=== PATIENT | female | born 1980 | race Caucasian/White ===

== ENCOUNTER 2018-02-06 21:34 | Emergency (ER) | payer MEDICAID, OTHER ==
[~2018-02-06] VITALS: Ht 157.5 cm; Wt 84.0 kg
[~2018-02-06 21:34] MED LIST: IBUP-1574 PO; NAPR-56 PO
[2018-02-06 21:35] VITALS: BP 145/91
[2018-02-06] MEDS ORDERED: iohexol 350MG/ML 100ml bottle IV ONE (22:46)
[2018-02-06 23:17] LABS: URINE HCG NEGATIVE (NEG)
== END 2018-02-07 01:37 | disposition home or self-care (01) ==
LOC: ER 21:34
DX: M54.2 Cervicalgia (principal); F15.90 Other stimulant use, unspecified, uncomplicated; F12.90 Cannabis use, unspecified, uncomplicated; Z88.1 Allergy status to other antibiotic agents; Z88.0 Allergy status to penicillin
CPT/HCPCS: 70496; 70498; 81025; 99285; J7030; Q9967; 99284

== ENCOUNTER 2018-04-15 07:42 | Emergency (ER) | payer MEDICAID ==
[~2018-04-15] VITALS: Ht 157.5 cm; Wt 90.0 kg
[2018-04-15] MEDS ORDERED: AZIT250T83 PO (08:19)
[2018-04-15] MEDS ORDERED: TRAM50TA2 PO (08:19)
[2018-04-15] MEDS ORDERED: ketorolac trometh inj. 60 MG/2 ML VIAL IM ONE (08:20)
[2018-04-15 08:58] VITALS: BP 103/54
== END 2018-04-15 09:03 | disposition home or self-care (01) ==
LOC: ER 07:42
DX: J02.9 Acute pharyngitis, unspecified (principal); R59.0 Localized enlarged lymph nodes; F12.90 Cannabis use, unspecified, uncomplicated; F15.90 Other stimulant use, unspecified, uncomplicated; Z88.1 Allergy status to other antibiotic agents; Z88.0 Allergy status to penicillin; Z98.890 Other specified postprocedural states; Z59.0 Homelessness
CPT/HCPCS: 96372; 99283; J1885

== ENCOUNTER 2018-07-29 14:58 | Emergency (ER) | payer MEDICAID ==
[~2018-07-29] VITALS: Ht 157.5 cm; Wt 87.0 kg
[2018-07-29 14:59] VITALS: BP 133/84
[2018-07-29] MEDS ORDERED: LEVO500T2 PO (15:05)
[2018-07-29] MEDS ORDERED: IBUP-1984 PO (15:05)
== END 2018-07-29 15:19 | disposition home or self-care (01) ==
LOC: ER 14:58
DX: H66.92 Otitis media, unspecified, left ear (principal); Z86.14 Personal history of Methicillin resistant Staphylococcus aureus infection; F12.90 Cannabis use, unspecified, uncomplicated; F15.90 Other stimulant use, unspecified, uncomplicated; Z88.1 Allergy status to other antibiotic agents; Z88.0 Allergy status to penicillin; Z79.899 Other long term (current) drug therapy; Z98.890 Other specified postprocedural states; Z56.0 Unemployment, unspecified
CPT/HCPCS: 99283

== ENCOUNTER 2018-11-10 02:02 | Emergency (ER) | payer MEDICAID ==
[~2018-11-10] VITALS: Ht 154.9 cm; Wt 72.0 kg
[2018-11-10 02:05] VITALS: BP 115/90
[2018-11-10] MEDS ORDERED: CLIN150C8 PO (02:25)
[2018-11-10] MEDS ORDERED: ibuprofen tablet 400 MG TABLET PO ONE (02:25)
[2018-11-10] MEDS ORDERED: clindamycin 150mg capsule PO ONE (02:25)
[2018-11-10] MEDS ORDERED: ketorolac trometh inj. 60 MG/2 ML VIAL IM ONE (02:40)
== END 2018-11-10 02:56 | disposition home or self-care (01) ==
LOC: ER 02:02
DX: L02.511 Cutaneous abscess of right hand (principal); F12.90 Cannabis use, unspecified, uncomplicated; F15.90 Other stimulant use, unspecified, uncomplicated; Z79.899 Other long term (current) drug therapy; Z79.2 Long term (current) use of antibiotics; Z79.1 Long term (current) use of non-steroidal anti-inflammatories (NSAID); Z56.0 Unemployment, unspecified; Z59.0 Homelessness; Z86.14 Personal history of Methicillin resistant Staphylococcus aureus infection; Z88.0 Allergy status to penicillin; Z88.1 Allergy status to other antibiotic agents; Z98.890 Other specified postprocedural states
CPT/HCPCS: 96372; 99284; J1885

== ENCOUNTER 2018-11-13 01:23 | Emergency (ER) | payer MEDICAID ==
[~2018-11-13] VITALS: Ht 154.9 cm; Wt 72.0 kg
[~2018-11-13 01:23] MED LIST changes: +CLIN150C8 PO
[2018-11-13 01:27] VITALS: BP 113/78
--- NOTE | 2018-11-13 01:50 | NUR ---
Patient requests to get a steroid injection, "quick, so I can get outta' here." I informed the patient we would get her taken care of as quickly as possible but that there were currently several emergencies to attend to first. She states, "thats ok, I'll just come back in the morning. Just don't scratch it, right?" I attempted to convince the patient to stay but she refused to wait. Patient left ambulatory in a stable condition. It is unknown if she is homeless as she states, "Why? I don't feel like talking about it."
== END 2018-11-13 02:08 | disposition left against medical advice (07) ==
LOC: ER 01:23
DX: L23.7 Allergic contact dermatitis due to plants, except food (principal); Z53.21 Procedure and treatment not carried out due to patient leaving prior to being seen by health care provider

== ENCOUNTER 2019-01-27 19:51 | Emergency (ER) | payer MEDICAID ==
[~2019-01-27] VITALS: Ht 157.5 cm; Wt 72.7 kg
[2019-01-27 19:53] VITALS: BP 106/62
[2019-01-27 20:21] LABS: URINE HCG NEGATIVE (NEG)
[2019-01-27 20:22] LABS: CLARITY,URINE CLOUDY (Clear); COLOR,URINE YELLOW (Yellow); GLUCOSE, URINE NEGATIVE (Neg); KETONES,URINE NEGATIVE (Neg); LEUKOCYTE ESTERASE ,URINE MODERATE (Neg); NITRITES, URINE NEGATIVE (Neg); OCCULT BLOOD,URINE MODERATE (Neg); PROTEIN,URINE 30 mg/dl (Neg); UA COLLECTION TYPE VOIDED; UROBILINOGEN,URINE 0.2 E.U/dL (0.2-1.0)
--- NOTE | 2019-01-27 20:23 | NUR ---
PT DENIES ANY ABD PAIN, N/V, HEMATURIA OR FEVERS. CHANGED PT TO LEVEL 4.
[2019-01-27 20:29] LABS: BACTERIA,URINE FEW /HPF (Neg); MUCUS STRANDS NONE SEEN /LPF (Neg); SQUAMOUS EPITHELIAL CELL,UR FEW /LPF (FEW); WBC,URINE TNTC /HPF (0-4)
[2019-01-27 20:30] LABS: TRANSITIONAL EPI CELLS,URINE FEW /HPF
[2019-01-27] MEDS ORDERED: SULF1TAB49 PO (20:33)
== END 2019-01-27 20:40 | disposition home or self-care (01) ==
LOC: ER 19:51
DX: N39.0 Urinary tract infection, site not specified (principal); F12.90 Cannabis use, unspecified, uncomplicated; F15.90 Other stimulant use, unspecified, uncomplicated; Z98.890 Other specified postprocedural states; Z59.0 Homelessness; Z56.0 Unemployment, unspecified; Z88.1 Allergy status to other antibiotic agents; Z88.0 Allergy status to penicillin; Z88.5 Allergy status to narcotic agent; Z79.2 Long term (current) use of antibiotics; Z79.899 Other long term (current) drug therapy
CPT/HCPCS: 81001; 81025; 87077; 87088; 87186; 99283

== ENCOUNTER 2019-03-28 16:50 | Emergency (ER) | payer MEDICAID ==
[~2019-03-28] VITALS: Ht 157.5 cm; Wt 75.0 kg
[2019-03-28 17:33] VITALS: BP 129/85
[2019-03-28 18:04] LABS: CLARITY,URINE CLOUDY (Clear); COLOR,URINE YELLOW (Yellow); GLUCOSE, URINE NEGATIVE (Neg); KETONES,URINE NEGATIVE (Neg); LEUKOCYTE ESTERASE ,URINE LARGE (Neg); NITRITES, URINE POSITIVE (Neg); OCCULT BLOOD,URINE SMALL (Neg); PROTEIN,URINE NEGATIVE (Neg); UROBILINOGEN,URINE 0.2 E.U/dL (0.2-1.0)
[2019-03-28 18:07] LABS: UA COLLECTION TYPE CLN CATCH MIDSTREAM
[2019-03-28 18:21] LABS: BACTERIA,URINE 3+ /HPF (Neg); SQUAMOUS EPITHELIAL CELL,UR MANY /LPF (FEW); WBC,URINE TNTC /HPF (0-4)
[2019-03-28 18:22] LABS: MUCUS STRANDS FEW /LPF (Neg); WBC CLUMPS,URINE FEW /HPF (NEGATIVE)
[2019-03-29] MEDS ORDERED: ONDA4TAB12 PO (02:45)
[2019-03-29] MEDS ORDERED: AMOX-101 PO (02:45)
== END 2019-03-28 20:15 | disposition left against medical advice (07) ==
LOC: ER 16:52
DX: J02.9 Acute pharyngitis, unspecified (principal); Z53.21 Procedure and treatment not carried out due to patient leaving prior to being seen by health care provider
CPT/HCPCS: 81001

== ENCOUNTER 2019-03-29 02:23 | Emergency (ER) | payer MEDICAID ==
[~2019-03-29] VITALS: Ht 157.5 cm; Wt 72.7 kg
[2019-03-29 02:27] VITALS: BP 121/92
[2019-03-29] MEDS ORDERED: ketorolac trometh. 30mg/ml inj. IM ONE (02:40)
[2019-03-29] MEDS ORDERED: amoxicillin 250mg capsule PO ONE (02:40)
[2019-03-29] MEDS ORDERED: dexamethasone sod phosphate 10mg/ml inj PO STA (02:40)
[2019-03-29] MEDS ORDERED: AMOX-101 PO (02:45)
[2019-03-29] MEDS ORDERED: ONDA4TAB12 PO (02:45)
== END 2019-03-29 03:13 | disposition home or self-care (01) ==
LOC: ER 02:24
DX: N39.0 Urinary tract infection, site not specified (principal); J02.9 Acute pharyngitis, unspecified; F17.210 Nicotine dependence, cigarettes, uncomplicated; F12.90 Cannabis use, unspecified, uncomplicated; F15.90 Other stimulant use, unspecified, uncomplicated; Z86.14 Personal history of Methicillin resistant Staphylococcus aureus infection; Z98.890 Other specified postprocedural states; Z56.0 Unemployment, unspecified; Z59.0 Homelessness; Z88.1 Allergy status to other antibiotic agents; Z88.0 Allergy status to penicillin; Z79.2 Long term (current) use of antibiotics; Z79.899 Other long term (current) drug therapy
CPT/HCPCS: 96372; 99283; J1100; J1885

== ENCOUNTER 2021-04-02 15:08 | Emergency (ER) | payer MEDICAID ==
[~2021-04-02 15:08] MED LIST changes: +ONDA4TAB12 PO
== END 2021-04-02 17:09 | disposition left against medical advice (07) ==
LOC: ER 15:09
DX: M54.9 Dorsalgia, unspecified (principal); Z53.21 Procedure and treatment not carried out due to patient leaving prior to being seen by health care provider

== ENCOUNTER 2021-04-08 04:02 | Emergency (ER) | payer MEDICAID ==
[~2021-04-08] VITALS: Ht 157.5 cm; Wt 81.8 kg
[2021-04-08 04:45] LABS: BASOPHILS % (AUTO) 0.2 % (0-1); EOSINOPHILS # (AUTO) 0.2 X10'3 (0-0.9); EOSINOPHILS % (AUTO) 2.1 % (0-6); LYMPHOCYTES % (AUTO) 34.6 % (21-51); MEAN CORPUSCULAR HGB CONC 34.3 g/dL (33.0-36.5); MEAN CORPUSCULAR VOLUME 90.4 FL (78-98); MEAN PLATELET VOLUME 7.5 FL (7.4-10.4); MONOCYTES # (AUTO) 0.6 X10'3 (0-0.9); MONOCYTES % (AUTO) 6.7 % (2-12); NEUTROPHILS # (AUTO) 4.9 X10'3 (1.8-7.7); NEUTROPHILS % (AUTO) 56.4 % (42-75); PLATELET COUNT 366 X10'3 (140-440); RED CELL DISTRIBUTION WIDTH 13.2 % (11.5-14.5); WHITE BLOOD COUNT 8.6 X10'3 (4.5-11.0)
[2021-04-08 04:55] LABS: ALANINE AMINOTRANSFERASE 24 U/L (12-78); ALBUMIN 3.3 G/DL (3.4-5.0); ALBUMIN/GLOBULIN RATIO 0.9 (1.1-1.5); ALKALINE PHOSPHATASE 65 IU/L (46-116); ANION GAP 10 (8-16); ASPARTATE AMINO TRANSFERASE 17 U/L (10-37); BILIRUBIN,TOTAL 0.1 MG/DL (0.1-1.0); BLOOD UREA NITROGEN 9 MG/DL (7-18); BUN/CREATININE RATIO 12.5 (6.6-38.0); CALCIUM 8.8 MG/DL (8.5-10.1); CHLORIDE 101 MMOL/L (99-107); CREATININE 0.72 MG/DL (0.40-0.90); GLUCOSE 100 MG/DL (70-104); LIPASE < 50 U/L (73-393); POTASSIUM 3.5 MMOL/L (3.5-5.1); SODIUM 138 MMOL/L (135-145); TOTAL CARBON DIOXIDE 27.2 MMOL/L (24-32); TOTAL PROTEIN 6.9 G/DL (6.4-8.2); eGFR 90 ML/MIN
[2021-04-08 05:03] LABS: BILIRUBIN,DIRECT < 0.1 MG/DL (0-0.3)
[2021-04-08 05:09] LABS: CLARITY,URINE SLIGHTLY CLOUDY (Clear); COLOR,URINE YELLOW (Yellow); GLUCOSE, URINE NEGATIVE (Neg); KETONES,URINE NEGATIVE (Neg); LEUKOCYTE ESTERASE ,URINE TRACE (Neg); NITRITES, URINE NEGATIVE (Neg); OCCULT BLOOD,URINE NEGATIVE (Neg); PROTEIN,URINE NEGATIVE (Neg); UA COLLECTION TYPE CLN CATCH MIDSTREAM; URINE HCG NEGATIVE (NEG); UROBILINOGEN,URINE 0.2 E.U/dL (0.2-1.0)
[2021-04-08 05:17] LABS: HYALINE CASTS 0-3 /LPF (NEGATIVE)
[2021-04-08 05:19] LABS: BACTERIA,URINE 1+ /HPF (Neg); RBC,URINE 0-2 /HPF (0-2); WBC,URINE 0-4 /HPF (0-4)
[2021-04-08 05:20] LABS: SQUAMOUS EPITHELIAL CELL,UR MANY /LPF (FEW); TRICHOMONAS,URINE FEW /HPF (NEGATIVE)
[2021-04-08] MEDS ORDERED: CEPH-585 PO (06:33)
[2021-04-08 06:45] VITALS: BP 144/99
== END 2021-04-08 06:48 | disposition home or self-care (01) ==
LOC: ER 04:03
DX: N39.0 Urinary tract infection, site not specified (principal); N10 Acute pyelonephritis; R00.0 Tachycardia, unspecified; F12.90 Cannabis use, unspecified, uncomplicated; F15.90 Other stimulant use, unspecified, uncomplicated; Z86.14 Personal history of Methicillin resistant Staphylococcus aureus infection; Z98.890 Other specified postprocedural states; Z56.0 Unemployment, unspecified; Z59.00 Homelessness unspecified; Z79.2 Long term (current) use of antibiotics; Z79.899 Other long term (current) drug therapy
CPT/HCPCS: 36415; 74176; 80048; 80076; 81001; 81025; 83690; 85025; 99284

== ENCOUNTER 2021-08-06 12:00 | Emergency (ER) | payer MEDICAID ==
[~2021-08-06] VITALS: Ht 154.9 cm; Wt 95.0 kg
[2021-08-06 12:06] VITALS: BP 172/89
== END 2021-08-06 16:00 | disposition left against medical advice (07) ==
LOC: ER 12:01
DX: L02.415 Cutaneous abscess of right lower limb (principal); Z53.21 Procedure and treatment not carried out due to patient leaving prior to being seen by health care provider

== ENCOUNTER 2021-09-24 16:06 | Emergency (ER) | payer MEDICAID ==
[~2021-09-24] VITALS: Ht 154.9 cm; Wt 86.0 kg
[2021-09-24 17:01] VITALS: BP 169/106
[2021-09-24] MEDS ORDERED: LIDOcaine 5% patch TP STA (17:37)
[2021-09-24] MEDS ORDERED: triamcinolone acetonide 40mg/ml inj IM ONE (17:40)
[2021-09-24] MEDS ORDERED: TRAM50TA2 PO (17:52)
[2021-09-24] MEDS ORDERED: METH4TAB81 PO (17:52)
--- NOTE | 2021-09-24 18:00 | NUR ---
im given topical applied
[2021-09-25] MEDS ORDERED: IBUP-1986 PO (09:46)
[2021-09-25] MEDS ORDERED: LIDO700A32 TOP (09:46)
== END 2021-09-24 18:24 | disposition home or self-care (01) ==
LOC: ER 16:07
DX: M54.9 Dorsalgia, unspecified (principal); M25.552 Pain in left hip; F12.10 Cannabis abuse, uncomplicated; F15.10 Other stimulant abuse, uncomplicated; Z56.0 Unemployment, unspecified; Z59.00 Homelessness unspecified
CPT/HCPCS: 96372; 99283; J3301

== ENCOUNTER 2021-10-09 12:42 | Emergency (ER) | payer MEDICAID ==
[~2021-10-09] VITALS: Ht 157.5 cm; Wt 90.9 kg
[~2021-10-09 12:42] MED LIST changes: +IBUP-1986 PO; +LIDO700A32 TOP; +METH4TAB81 PO; +TRAM50TA2 PO
[2021-10-09 13:08] VITALS: BP 182/106
--- NOTE | 2021-10-09 13:18 | NUR ---
notified the charge that pt might need the room next as pt is in lot of pain .
[2021-10-09] MEDS ORDERED: ORPH100T2 PO (16:39)
[2021-10-09] MEDS ORDERED: LIDO700A32 TOP (16:39)
[2021-10-09] MEDS ORDERED: TRAM50TA2 PO (16:39)
[2021-10-09] MEDS ORDERED: NAPR-56 PO (16:39)
[2021-10-09] MEDS ORDERED: traMADol 50MG tablet PO ONE (16:40)
[2021-10-09] MEDS ORDERED: ketorolac trometh inj. 60 MG/2 ML VIAL IM ONE (16:40)
--- NOTE | 2021-10-09 17:58 | NUR ---
PT LEFT WITHOUT DC INSTRUCTIONS, LEFT MESSAGE SHE HAD RX AT [facility]
== END 2021-10-09 18:00 | disposition home or self-care (01) ==
LOC: ER 12:43
DX: G89.29 Other chronic pain (principal); M54.59 Other low back pain
CPT/HCPCS: 96372; 99283; J1885

== ENCOUNTER 2021-10-25 22:22 | Emergency (ER) | payer MEDICAID ==
[~2021-10-25] VITALS: Ht 157.5 cm; Wt 87.0 kg
[~2021-10-25 22:22] MED LIST changes: +ORPH100T2 PO
[2021-10-25] MEDS ORDERED: ketorolac trometh. 30mg/ml inj. IM ONE (23:40)
[2021-10-25] MEDS ORDERED: PRED10TA23 PO (23:40)
[2021-10-25] MEDS ORDERED: predniSONE 20 mg tablet PO ONE (23:40)
[2021-10-25] MEDS ORDERED: MELO-102 PO (23:40)
[2021-10-26] MEDS ORDERED: predniSONE 20 mg tablet PO ONE (00:20)
[2021-10-26 00:32] VITALS: BP 164/105
== END 2021-10-26 00:33 | disposition home or self-care (01) ==
LOC: ER 22:22
DX: M25.552 Pain in left hip (principal); G89.29 Other chronic pain; F12.90 Cannabis use, unspecified, uncomplicated; F15.90 Other stimulant use, unspecified, uncomplicated; Z86.14 Personal history of Methicillin resistant Staphylococcus aureus infection; Z56.0 Unemployment, unspecified; Z59.00 Homelessness unspecified; Z79.899 Other long term (current) drug therapy; Z79.2 Long term (current) use of antibiotics
CPT/HCPCS: 96372; 99283; J1885; J7512